=== PATIENT | female | born 1995 | race Caucasian/White ===

== ENCOUNTER 2018-08-01 13:29 | Outpatient (REF) | payer MEDICAID, SELFPAY ==
[2018-08-01 19:07] LABS: HGB 13.9 g/dL (12.0-15.5); Mean Corp. HGB Concentration 33.1 g/dL (32.0-36.0); Mean Corpuscular Hemoglobin 29.1 pg (27.0-33.0); Mean Corpuscular Volume 88.1 fL (80-95); Mean Platelet Volume 11.1 fL (8.0-11.0); Platelet Count 324 x1000/uL (130-400); RBC 4.77 m/cumm (4.00-5.20); RBC Distribution Width 14.1 % (11.7-14.6); White Blood Cell Count 10.99 k/cumm (4.4-10.8)
[2018-08-01 19:35] LABS: Iron 68 ug/dL (50-175)
[2018-08-01 19:49] LABS: ALT 86 U/L (12-78); AST 29 U/L (15-37); Ferritin 128 ng/mL (8-388)
== END 2018-08-01 13:49 ==
LOC: NCHCN 13:29
PROVIDERS: PCP Registered Nurse; Visit Provider Nurse Practitioner Family
DX: R74.8 Abnormal levels of other serum enzymes (principal); R94.6 Abnormal results of thyroid function studies; N80.9 Endometriosis, unspecified; Z68.41 Body mass index [BMI] 40.0-44.9, adult
CPT/HCPCS: 85027; 82728; 83036; 83540; 84450; 84460

== ENCOUNTER 2018-09-15 15:19 | Outpatient (REF) | payer MEDICAID, SELFPAY ==
[2018-09-15 19:53] LABS: TSH 2.26 uIU/mL (0.358-3.74)
[2018-09-15 20:12] LABS: Hemoglobin A1C 5.9 % (4.5-6.2)
== END 2018-09-15 15:39 ==
LOC: NCHCN 15:19
PROVIDERS: PCP Registered Nurse; Visit Provider Nurse Practitioner Family
DX: R73.03 Prediabetes (principal); R94.6 Abnormal results of thyroid function studies
CPT/HCPCS: 83036; 84443

== ENCOUNTER 2018-12-20 14:59 | Outpatient (REF) | payer MEDICAID, SELFPAY ==
[2018-12-20 19:30] LABS: HCT 41.5 % (36.0-46.0); Mean Corp. HGB Concentration 33.7 g/dL (32.0-36.0); Mean Corpuscular Hemoglobin 29.9 pg (27.0-33.0); Mean Corpuscular Volume 88.7 fL (80-95); Mean Platelet Volume 11.5 fL (8.0-11.0); Platelet Count 284 x1000/uL (130-400); RBC 4.68 m/cumm (4.00-5.20); White Blood Cell Count 12.62 k/cumm (4.4-10.8)
[2018-12-20 19:40] LABS: Uric Acid 6.9 mg/dL (2.6-6.0)
== END 2018-12-20 15:19 ==
LOC: NCHCN 14:59
PROVIDERS: PCP Registered Nurse; Visit Provider Nurse Practitioner Family
DX: M79.671 Pain in right foot (principal)
CPT/HCPCS: 85027; 84550

== ENCOUNTER 2019-01-09 05:06 | Outpatient (REF) | payer MEDICAID, SELFPAY ==
[2019-01-10 00:43] LABS: Iron 77 ug/dL (50-175)
[2019-01-10 00:57] LABS: Calculated LDL 139 mg/dL; Cholesterol 207 mg/dL (50-200); Ferritin 82 ng/mL (8-388); Glucose 91 mg/dL (70-100); HDL Cholesterol 43 mg/dL (40-60); Triglyceride 127 mg/dL (30-150)
== END 2019-01-09 05:26 ==
LOC: NCHCN 05:06
PROVIDERS: PCP Registered Nurse; Visit Provider Nurse Practitioner Family
DX: D50.9 Iron deficiency anemia, unspecified (principal); Z13.1 Encounter for screening for diabetes mellitus; Z13.220 Encounter for screening for lipoid disorders
CPT/HCPCS: 80061; 82947; 83721; 82728; 83540

== ENCOUNTER 2019-03-13 12:45 | Outpatient (REF) | payer MEDICAID, SELFPAY ==
[2019-03-13 20:50] LABS: HCG Qual (Serum) Negative
== END 2019-03-13 13:05 ==
LOC: NCHCN 12:45
PROVIDERS: PCP Registered Nurse; Visit Provider Nurse Practitioner Family
DX: N91.2 Amenorrhea, unspecified (principal)
CPT/HCPCS: 84703

== ENCOUNTER 2019-08-23 08:41 | Outpatient (REF) | payer MEDICAID, SELFPAY ==
[2019-08-23 21:04] LABS: Hemoglobin A1C 5.8 % (3.8-5.6)
[2019-08-25 10:50] LABS: HIV-1/2 Ag & Ab Screen Negative (Negative)
[2019-08-25 13:30] LABS: Chlamydia Result Negative (Negative); GC Result Negative (Negative)
== END 2019-08-23 09:01 ==
LOC: NCHCN 08:41
PROVIDERS: PCP Registered Nurse; Visit Provider Nurse Practitioner Family
DX: Z11.3 Encounter for screening for infections with a predominantly sexual mode of transmission (principal); Z11.4 Encounter for screening for human immunodeficiency virus [HIV]; R73.03 Prediabetes; Z04.41 Encounter for examination and observation following alleged adult rape
CPT/HCPCS: 87389; 87491; 87591; 83036

== ENCOUNTER 2019-11-28 16:42 | Outpatient (REF) | payer MEDICAID, SELFPAY | END 2019-11-28 17:02 | LOC: NCHCN 16:42 | PROVIDERS: PCP Registered Nurse; Visit Provider Nurse Practitioner Family | DX: N39.0 Urinary tract infection, site not specified (principal) | CPT/HCPCS: 87077; 87086; 87186 ==

== ENCOUNTER 2019-12-21 09:16 | Outpatient (REF) | payer MEDICAID, SELFPAY | END 2019-12-21 09:36 | LOC: NCHCN 09:16 | PROVIDERS: PCP Registered Nurse; Visit Provider Physician Assistant | DX: N39.0 Urinary tract infection, site not specified (principal) | CPT/HCPCS: 87086 ==

== ENCOUNTER 2020-02-19 11:07 | Outpatient (REF) | payer MEDICAID, SELFPAY ==
[2020-02-19 20:07] LABS: HCT 40.6 % (36.0-46.0); HGB 13.3 g/dL (11.2-15.7); MCH 29.4 pg (27.0-33.0); MCHC 32.8 % (32.0-36.0); MCV 89.8 fL (80-95); MPV 11.2 fL (8.0-11.0); Platelet Count 298 10^3/uL (130-400); RBC 4.52 10^6/uL (3.93-5.22); RDW 14.1 % (11.7-14.6); RDW-SD 46.3 fL
== END 2020-02-19 11:27 ==
LOC: NCHCN 11:07
PROVIDERS: PCP Registered Nurse; Visit Provider Nurse Practitioner Family
DX: I88.0 Nonspecific mesenteric lymphadenitis (principal)
CPT/HCPCS: 85027

== ENCOUNTER 2020-03-13 12:43 | Outpatient (REF) | payer MEDICAID, SELFPAY ==
[2020-03-13 22:27] LABS: Abs Immature Grans 0.07 10^3/uL (0.0-0.06); Absolute Eosinophil Count 0.31 10^3/uL (0.0-0.7); Absolute Lymphocyte Count 2.96 10^3/uL (1.2-3.4); Absolute Monocyte Count 1.13 10^3/uL (0.1-0.8); Absolute Neutrophil Count 7.77 10^3/uL (1.2-6.7); Basophils % 0.6; Eosinophils % 2.5; HCT 39.9 % (36.0-46.0); HGB 13.2 g/dL (11.2-15.7); Immature Grans % 0.6; MCH 29.7 pg (27.0-33.0); MCHC 33.1 % (32.0-36.0); MCV 89.9 fL (80-95); MPV 11.9 fL (8.0-11.0); Monocytes % 9.2; Neutrophils % 63.1; Nucleated RBC 0 %; Platelet Count 301 10^3/uL (130-400); RBC 4.44 10^6/uL (3.93-5.22); RDW 14.2 % (11.7-14.6); RDW-SD 46.4 fL; WBC 12.32 10^3/uL (4.4-10.8)
[2020-03-13 22:29] LABS: Absolute Basophil Count 0.07 10^3/uL (0.0-0.2)
[2020-03-18 12:27] LABS: Misc Referral (VDH) See Comments
== END 2020-03-13 13:03 ==
LOC: NCHCN 12:43
PROVIDERS: Physician Assistant; PCP Registered Nurse; Visit Provider Nurse Practitioner Family
DX: I88.0 Nonspecific mesenteric lymphadenitis (principal); R19.7 Diarrhea, unspecified
CPT/HCPCS: 87329; 87505; 83630; 85025; 87177; 87324

== ENCOUNTER 2020-03-18 15:11 | Outpatient (REF) | payer MEDICAID, SELFPAY ==
[2020-03-18 20:24] LABS: Vitamin D 25 Total 18.7 ng/ml (30-100)
[2020-03-18 20:28] LABS: Anion Gap 10.9 mmol/L (3-11); BUN 8 mg/dL (7-18); CO2 25.1 mmol/L (21.0-32.0); CREATININE 0.75 mg/dL (0.55-1.02); Chloride 104 mmol/L (98-107); Glucose 90 mg/dL (74-106); Potassium 4.2 mmol/L (3.5-5.1); Sodium 140 mmol/L (136-145); Vitamin B12 228 pg/mL (193-986)
== END 2020-03-18 15:31 ==
LOC: NCHCN 15:11
PROVIDERS: PCP Registered Nurse; Visit Provider Physician Assistant
DX: R25.2 Cramp and spasm (principal); G25.81 Restless legs syndrome
CPT/HCPCS: 80048; 82306; 82607; 83735

== ENCOUNTER 2020-08-01 10:23 | Outpatient (REF) | payer MEDICAID, SELFPAY ==
[2020-08-01 15:59] LABS: Vitamin D 25 Total 20.8 ng/ml (30-100)
== END 2020-08-01 10:43 ==
LOC: NCHCN 10:23
PROVIDERS: PCP Registered Nurse; Visit Provider Physician Assistant
DX: E55.9 Vitamin D deficiency, unspecified (principal)
CPT/HCPCS: 82306

== ENCOUNTER 2020-08-02 18:54 | Outpatient (REF) | payer MEDICAID, SELFPAY ==
[2020-08-05 14:14] LABS: IgA 411 mg/dL (85-499); Interpretation (See Note); Tissue Transglutaminase IgA <1.2 U/mL (<4.0)
== END 2020-08-02 19:14 ==
LOC: NCHCN 18:54
PROVIDERS: PCP Registered Nurse; Visit Provider Physician Assistant
DX: R19.7 Diarrhea, unspecified (principal)
CPT/HCPCS: 82784; 83516

== ENCOUNTER 2020-08-30 13:00 | Outpatient (REF) | payer MEDICAID, SELFPAY ==
[2020-08-30 15:16] LABS: Abs Immature Grans 0.06 10^3/uL (0.0-0.06); Absolute Basophil Count 0.08 10^3/uL (0.0-0.2); Absolute Lymphocyte Count 2.71 10^3/uL (1.2-3.4); Basophils % 0.7; Eosinophils % 2.8; HCT 42.4 % (36.0-46.0); HGB 14.1 g/dL (11.2-15.7); Immature Grans % 0.6; Lymphocytes % 24.9; MCH 29.7 pg (27.0-33.0); MCHC 33.3 % (32.0-36.0); MCV 89.5 fL (80-95); MPV 11.5 fL (8.0-11.0); Monocytes % 7.3; Neutrophils % 63.7; Nucleated RBC 0 %; Platelet Count 297 10^3/uL (130-400); RBC 4.74 10^6/uL (3.93-5.22); RDW 13.2 % (11.7-14.6); RDW-SD 43.5 fL; WBC 10.89 10^3/uL (4.4-10.8)
[2020-08-30 15:27] LABS: Mono Screening Negative (Negative)
[2020-08-30 15:29] LABS: Absolute Monocyte Count 0.79 10^3/uL (0.1-0.8); Absolute Neutrophil Count 6.94 10^3/uL (1.2-6.7)
[2020-08-31 15:38] LABS: COVID-19 RT-PCR UVMMC Result Negative (Negative)
== END 2020-08-30 13:01 | disposition home or self-care (01) ==
LOC: NCHCN 13:00
PROVIDERS: PCP Registered Nurse; Visit Provider Physician Assistant
DX: J02.9 Acute pharyngitis, unspecified (principal); J35.1 Hypertrophy of tonsils; R51.9 Headache, unspecified; Z20.822 Contact with and (suspected) exposure to COVID-19; D72.829 Elevated white blood cell count, unspecified
CPT/HCPCS: U0003; 85025; 86308

== ENCOUNTER 2021-03-14 10:35 | Outpatient (REF) | payer MEDICAID, SELFPAY ==
[2021-03-14 20:17] LABS: ALT 64 U/L (14-59); AST 36 U/L (15-37); Albumin 3.8 g/dL (3.4-5.0); Alkaline Phosphatase 95 U/L (46-116); Anion Gap 10.1 mmol/L (3-11); BUN 6 mg/dL (7-18); Bilirubin, Total 0.3 mg/dL (0.2-1.0); CO2 24.9 mmol/L (21.0-32.0); CREATININE 0.9 mg/dL (0.55-1.02); Calcium 8.9 mg/dL (8.5-10.1); Calculated LDL 144 mg/dL (<100); Chloride 107 mmol/L (98-107); Cholesterol 209 mg/dL (<200); Glucose 99 mg/dL (74-106); HDL Cholesterol 47 mg/dL (40-60); Sodium 142 mmol/L (136-145); Total Protein 7.6 g/dL (6.4-8.2); Triglyceride 94 mg/dL (<150)
[2021-03-17 02:39] LABS: Vitamin D 25 Total 21.2 ng/mL (30-100)
== END 2021-03-14 10:36 | disposition home or self-care (01) ==
LOC: NCHCN 10:35
PROVIDERS: PCP Registered Nurse; Referring Provider Physician Assistant; Visit Provider Physician Assistant
DX: E55.9 Vitamin D deficiency, unspecified (principal); D50.9 Iron deficiency anemia, unspecified; R73.03 Prediabetes; E78.5 Hyperlipidemia, unspecified
CPT/HCPCS: 80053; 80061; 82306

== ENCOUNTER 2021-09-11 02:43 | Outpatient (CLI) | payer MEDICAID, SELFPAY | END 2021-09-11 02:44 | disposition home or self-care (01) | LOC: LBO 02:43 | PROVIDERS: PCP Registered Nurse; Visit Provider Physician Assistant ==

== ENCOUNTER 2021-09-26 03:44 | Outpatient (CLI) | payer MEDICAID, SELFPAY | END 2021-09-26 03:45 | disposition home or self-care (01) | LOC: LBO 03:44 | PROVIDERS: PCP Registered Nurse; Visit Provider Physician Assistant ==

== ENCOUNTER 2022-02-04 15:09 | Outpatient (REF) | payer MEDICAID, SELFPAY | END 2022-02-04 15:10 | disposition home or self-care (01) | LOC: NCHCN 15:09 | PROVIDERS: PCP Registered Nurse; Visit Provider Physician Assistant | DX: E55.9 Vitamin D deficiency, unspecified (principal) | CPT/HCPCS: 82306 ==

== ENCOUNTER 2022-10-27 15:46 | Outpatient (REF) | payer MEDICAID, SELFPAY ==
[2022-10-27 19:57] LABS: Abs Immature Grans 0.04 10^3/uL (0.0-0.06); Absolute Basophil Count 0.09 10^3/uL (0.0-0.2); Absolute Lymphocyte Count 3.41 10^3/uL (1.2-3.4); Basophils % 0.8; Eosinophils % 3.4; HCT 41.5 % (36.0-46.0); HGB 14.2 g/dL (11.2-15.7); Immature Grans % 0.3; Lymphocytes % 29.3; MCH 29.6 pg (27.0-33.0); MCHC 34.2 % (32.0-36.0); MCV 87 fL (80-95); MPV 11.6 fL (8.0-11.0); Monocytes % 7.6; Neutrophils % 58.6; Platelet Count 273 10^3/uL (130-400); RBC 4.79 10^6/uL (3.93-5.22); RDW 13.6 % (11.7-14.6); RDW-SD 43.1 fL; WBC 11.64 10^3/uL (4.4-10.8)
[2022-10-27 20:01] LABS: Absolute Monocyte Count 0.88 10^3/uL (0.1-0.8); Absolute Neutrophil Count 6.82 10^3/uL (1.2-6.7)
[2022-10-27 20:32] LABS: Vitamin D 25 Total 14.7 ng/mL (30-100)
[2022-10-27 20:39] LABS: ALT 52 U/L (14-59); AST 32 U/L (15-37); Alkaline Phosphatase 103 U/L (46-116); Anion Gap 12.4 mmol/L (3-11); BUN 12 mg/dL (7-18); Bilirubin, Total 0.2 mg/dL (0.2-1.0); CO2 24.6 mmol/L (21.0-32.0); CREATININE 0.9 mg/dL (0.55-1.02); Calcium 9.6 mg/dL (8.5-10.1); Chloride 104 mmol/L (98-107); Estimated GFR 88.75 (mL/min/1.73m2); Glucose 103 mg/dL (74-106); Sodium 141 mmol/L (136-145); TSH 2.13 uIU/mL (0.36-3.74); Total Protein 8.2 g/dL (6.4-8.2); Vitamin B12 362 pg/mL (193-986)
[2022-10-27 20:53] LABS: Uric Acid 6.2 mg/dL (2.6-6.0)
== END 2022-10-27 15:47 | disposition home or self-care (01) ==
LOC: NCHCN 15:46
PROVIDERS: PCP Registered Nurse; Visit Provider Physician Assistant
DX: E53.8 Deficiency of other specified B group vitamins (principal); E55.9 Vitamin D deficiency, unspecified; D72.829 Elevated white blood cell count, unspecified; E78.5 Hyperlipidemia, unspecified; M10.071 Idiopathic gout, right ankle and foot; R73.03 Prediabetes
CPT/HCPCS: 80053; 82306; 82607; 84443; 84550; 85025

== ENCOUNTER 2023-03-17 15:32 | Outpatient (REF) | payer MEDICAID, SELFPAY ==
[2023-03-17 21:35] LABS: Vitamin D 25 Total 19.3 ng/mL (30-100)
== END 2023-03-17 15:33 | disposition home or self-care (01) ==
LOC: NCHCN 15:32
PROVIDERS: PCP Registered Nurse; Visit Provider Physician Assistant
DX: E55.9 Vitamin D deficiency, unspecified (principal)
CPT/HCPCS: 82306

== ENCOUNTER 2023-07-01 14:12 | Outpatient (REF) | payer MEDICAID, SELFPAY ==
[2023-07-01 19:48] LABS: Vitamin D 25 Total 21.8 ng/mL (30-100)
== END 2023-07-01 14:13 | disposition home or self-care (01) ==
LOC: NCHCN 14:12
PROVIDERS: PCP Registered Nurse; Visit Provider Physician Assistant
DX: E55.9 Vitamin D deficiency, unspecified (principal); R73.03 Prediabetes
CPT/HCPCS: 82306; 83036